=== PATIENT | male | born 2000 | race Caucasian/White ===

== ENCOUNTER 2024-03-24 06:38 | Emergency (ER) | payer SELFPAY ==
[2024-03-24 07:19] LABS: Absolute Basophils 0.1 K/uL (0-0.5); Absolute Eosinophils 0.5 K/uL (0-0.5); Absolute Lymphocytes (CBC) 3.8 K/uL (0.7-4.9); Absolute Monocytes 0.8 K/uL (0.1-1.3); Absolute Neutrophil 3.8 K/uL (1.8-8.0); Basophils % 0.8 % (0-1.3); Eosinophils % 5.8 % (0-4.4); Hematocrit 44.5 % (39.6-49.0); Hemoglobin 15.5 g/dL (13.6-17.9); Lymphocytes % 41.8 % (15.3-44.8); MCH 30.9 pg (27.0-35.0); MCV 88.5 fL (80-100); MPV 8.2 fL (7.6-11.3); Monocytes % 9.1 % (3.3-12.3); Neutrophils % 42.5 % (41.7-73.7); Nucleated Red Blood Cells % 0.2 % (0-0); Platelets 274 thou/uL (152-406); RBC Red Blood Cell Count 5.02 M/uL (4.33-5.43); Red Cell Distribution Width 12.1 % (12.1-15.2)
[2024-03-24 07:21] LABS: Specific Gravity 1.028 (1.005-1.030); Sqamous Epithelial None Seen /HPF (None Seen); Urine Bacteria None Seen /HPF (<20); Urine Bilirubin NEGATIVE (Negative); Urine Blood Negative (Negative); Urine Clarity Clear (Clear); Urine Color Light-Yellow (Yellow); Urine Culture Reflex Order NOT NEEDED; Urine Glucose NEGATIVE (Negative); Urine Ketones NEGATIVE (Negative); Urine Microscopic Reflex YN ORDER UMIC; Urine Mucus Slight /HPF (None Seen); Urine Nitrite NEGATIVE (Negative); Urine Protein NEGATIVE (Negative); Urine RBC None Seen /HPF (None Seen); Urine Urobilinogen Normal (Normal); Urine WBC <5 /HPF (<5); Urine pH 5.5 (5.0-7.0)
[2024-03-24 07:29] LABS: Albumin 4.3 g/dL (3.4-5.0); Albumin/Globulin Ratio 1.5 (1.1-1.8); Bilirubin Total 0.4 mg/dL (0.2-1.0); Globulin 2.9 g/dL (2.3-3.5); Protein, Total 7.2 g/dL (6.4-8.2)
[2024-03-24] MEDS ORDERED: ONDANSETRON 4 MG/2 ML VIAL ONE (07:48)
[2024-03-24] MEDS ORDERED: FAMOTIDINE 20 MG/2 ML VIAL IV ONE (07:49)
[2024-03-24] MEDS ORDERED: KETOROLAC 30 MG/ML INJ ONE (07:49)
[2024-03-24] MEDS ORDERED: NA CHLORIDE 0.9% 1,000 ML ONE (07:49)
[2024-03-24] MEDS ORDERED: MAGNES/ALUMIN/SIMET 30ML UCUP ONE (08:41)
[2024-03-24] MEDS ORDERED: LIDOCAINE VISCOUS 2% 10ML ORAL SOLN ONE (08:41)
--- NOTE | 2024-03-24 09:04 | RAD REPORT ---
EXAM DESCRIPTION: US - Abdomen Exam Limited - 03/24/2024 7:13 am CLINICAL HISTORY: ruq pain COMPARISON: No comparisons TECHNIQUE: Sonographic grayscale and color flow images of the right upper abdominal quadrant were o btained. FINDINGS: The gallbladder demonstrates no gallstones. Minimal layering mildly echogenic sludge. No p ericholecystic fluid or gallbladder wall thickening. The common bile duct is normal measuring 4 mm. The liver demonstrates no findings of intrahepatic biliary dilatation. IMPRESSION: Minimal sludge within the gallbladder. No sonographic findings of acute cholecystitis or gallstones.
--- NOTE | 2024-03-24 10:00 | ER ---
Nurse's Notes [facility] Name: Sandor Sims Age: 23 yrs Sex: Male : 2000 Arrival Date: 03/24/2024 Time: 06:38 Bed 19 Private MD: Diagnosis: Upper abdominal pain, unspecified Presentation: 03/24 06:52 Chief complaint: Patient states: I was woken up out of my sleep this morning at around kd3 0430. The pain has come and gone since then. It is around the upper abdominal area and around the umbilical area. It is not in the lower quadrants. I have never felt a pain like this before. I have no other medical history but i do take Lexapro for depression. Coronavirus screen: Vaccine status: Patient reports being unvaccinated. Ebola Screen: No symptoms or risks identified at this time. Initial Sepsis Screen: Does the patient meet any 2 criteria? No. Patient's initial sepsis screen is negative. Does the patient have a suspected source of infection? No. Patient's initial sepsis screen is negative. Risk Assessment: Do you want to hurt yourself or someone else? Patient reports no desire to harm self or others. Onset of symptoms was March 24, 2024. 06:52 Method Of Arrival: Ambulatory kd3 06:52 Acuity: SHIRIN 3 kd3 Triage Assessment: 06:54 General: Appears uncomfortable, Behavior is calm, cooperative. Pain: Complains of pain kd3 in umbilical area. GI: Abdomen is non-distended. Historical: - Allergies: 06:54 No Known Allergies; kd3 - Home Meds: 06:54 Lexapro Oral [Active]; kd3 - Immunization history:: Adult Immunizations up to date. - Infectious Disease History:: Denies. - Social history:: Smoking status: Reported history of juuling and/or vaping. Screenin:50 [facility] ED Fall Risk Assessment (Adult) History of falling in the last 3 months, jj7 including since admission No falls in past 3 months (0 pts) Confusion or Disorientation No (0 pts) Intoxicated or Sedated No (0 pts) Impaired Gait No (0 pts) Mobility Assist Device Used No (0 pt) Altered Elimination No (0 pt) Score/Fall Risk Level 0 - 2 = Low Risk Oriented to surroundings, Maintained a safe environment, Educated pt \T\ family on fall prevention, incl call for assistance when getting out of bed. Abuse screen: Denies threats or abuse. Nutritional screening: No deficits noted. Tuberculosis screening: No symptoms or risk factors identified. Assessment: 06:50 General: Appears in no apparent distress. comfortable, Behavior is calm, cooperative, jj7 appropriate for age. Pain: Denies pain. GI: Abd is soft and non tender X 4 quads. Abd is soft Reports upper abdominal pain. 10:16 Reassessment: Patient appears in no apparent distress at this time. Patient and/or iw family updated on plan of care and expected duration. Pain level reassessed. Patient is alert, oriented x 3, equal unlabored respirations, skin warm/dry/pink. Patient states feeling better. GI: Bowel sounds present X 4 quads. Vital Signs: 06:52 BP 128 / 86; Pulse 59; Resp 17; Temp 98.1(O); Pulse Ox 100% on R/A; Weight 72.57 kg; kd3 Height 6 ft. 3 in. ; 08:26 BP 133 / 77; Pulse 50; Resp 18; Pulse Ox 99% on R/A; ph 10:16 BP 120 / 76; Pulse 79; Resp 16; Temp 98.1; Pulse Ox 100% on R/A; iw 06:52 Body Mass Index 20.00 (72.57 kg, 190.5 cm) kd3 ED Course: 06:40 Patient arrived in ED. jj6 06:50 Patient has correct armband on for positive identification. Bed in low position. Call jj7 light in reach. Warm blanket given. 06:50 No provider procedures requiring assistance completed. jj7 06:54 Triage completed. kd3 06:54 Arm band placed on. kd3 06:55 Inserted saline lock: 20 gauge in right antecubital area, using aseptic technique. jj7 Blood collected. 06:58 CBC with Diff Sent. jj7 06:58 CMP Sent. jj7 06:58 Lipase Sent. jj7 07:03 Urinalysis w/ reflexes Sent. jj7 07:07 Report given to MAXIMILIANO PETTY. jj7 07:11 Keagan Desai DO is Attending Physician. ms3 07:14 Sagrario Vizcarra, RN is Primary Nurse. ph 07:15 Abdomen Limited US In Process Unspecified. EDMS 09:32 Giovani Martell MD is Referral Physician. ms3 10:00 Giovani Martell MD is Referral Physician. ms3 10:16 IV discontinued, intact, bleeding controlled, No redness/swelling at site. Pressure iw dressing applied. Administered Medications: 08:05 Drug: NS 0.9% IV 1000 ml IV at 1 bolus Per protocol; 1000 mL bolus Route: IV; Rate: 1 ph bolus; Site: right antecubital; 09:45 Follow up: Response: No adverse reaction; IV Status: Completed infusion; IV Intake: ph 1000ml 08:05 Drug: TORadol - Ketorolac IVP 15 mg IVP once Route: IVP; Site: right antecubital; ph 18:30 Follow up: Response: No adverse reaction ph 08:05 Drug: Ondansetron IVP 4 mg IVP once; over 2 minutes Route: IVP; Site: right antecubital;ph 08:30 Follow up: Response: No adverse reaction ph 08:05 Drug: Famotidine IVP 20 mg IVP once; dilute with 10 mL 0.9% NaCl; give over 2 minutes ph Route: IVP; Site: right antecubital; 08:30 Follow up: Response: No adverse reaction ph 10:15 Drug: GI Cocktail with - (Maalox PO 30 ml, Lidocaine Mucous Membrane 2 % 20 iw ml, Phenobarbital-Belladonna PO 10 ml) PO once Route: PO; 10:17 Follow up: Response: No adverse reaction ph Medication: 06:50 VIS not applicable for this client. jj7 Intake: 09:45 IV: 1000ml; Total: 1000ml. ph Outcome: 09:32 Discharge ordered by . ms3 10:00 Discharge ordered by . ms3 10:16 Discharged to home ambulatory, iw 10:16 Condition: good 10:16 Discharge instructions given to patient, Instructed on discharge instructions, follow up and referral plans. medication usage, Demonstrated understanding of instructions, follow-up care, medications, Prescriptions given X 1, 10:17 Patient left the ED. iw Signatures: Dispatcher [employer] EDMS Preethi Moreno RN RN iw Sagrario Vizcarra RN RN ph Keagan Desai DO DO ms3 Mary Kate Romano jj6 Jaimee Franco RN RN kd3 Cyrus Buchanan RN RN jj7 Corrections: (The following items were deleted from the chart) 08:25 08:25 Famotidine IVP 20 mg IVP in right antecubital ph ph
--- NOTE | 2024-03-24 10:01 | EDPHYS ---
Physician Documentation [facility] Name: Sandor Sims Age: 23 yrs Sex: Male : 2000 Arrival Date: 03/24/2024 Time: 06:38 Bed 19 Private MD: ED Physician Keagan Desai HPI: 03/24 07:34 This 23 yrs old Male presents to ER via Ambulatory with complaints of Abdominal Pain. ms3 07:34 23-year-old male with no past medical history presents to the emergency department for ms3 epigastric and right upper quadrant abdominal pain that began at 4:30 AM. He states the pain is rated a 3/10. He endorses nausea and denies vomiting or diarrhea. Patient has not been around sick contacts. He denies any alleviating or inciting factors. Historical: - Allergies: 06:54 No Known Allergies; kd3 - Home Meds: 06:54 Lexapro Oral [Active]; kd3 - Immunization history:: Adult Immunizations up to date. - Infectious Disease History:: Denies. - Social history:: Smoking status: Reported history of juuling and/or vaping. ROS: 07:34 Constitutional: Negative for fever, and chills. Neck: Negative for injury, pain, and ms3 swelling, Cardiovascular: Negative for chest pain, and palpitations. Respiratory: Negative for shortness of breath, cough, wheezing, and pleuritic chest pain, 07:34 MS/Extremity: Negative for injury and deformity, Skin: Negative for injury, rash, and discoloration, 07:34 Abdomen/GI: Positive for abdominal pain, nausea, Exam: 07:34 Constitutional: This is a well developed, well nourished patient who is awake, alert, ms3 and in no acute distress. Head/Face: Normocephalic, atraumatic. Neck: Trachea midline, no cervical lymphadenopathy. Supple, full range of motion without nuchal rigidity, or vertebral point tenderness. No Meningismus. Chest/axilla: Normal chest wall appearance and motion. Nontender with no deformity. Cardiovascular: Regular rate and rhythm with a normal S1 and S2. No gallops, murmurs, or rubs. Normal PMI, no JVD. No pulse deficits. Respiratory: Lungs have equal breath sounds bilaterally, clear to auscultation and percussion. No rales, rhonchi or wheezes noted. No increased work of breathing, no retractions or nasal flaring. Skin: Warm, dry with normal turgor. Normal color with no rashes, no lesions, and no evidence of cellulitis. MS/ Extremity: Pulses equal, no cyanosis. Neurovascular intact. Full, normal range of motion. 07:34 Abdomen/GI: Inspection: abdomen appears normal, Bowel sounds: normal, Palpation: mild abdominal tenderness, in the epigastric area and right upper quadrant, Vital Signs: 06:52 BP 128 / 86; Pulse 59; Resp 17; Temp 98.1(O); Pulse Ox 100% on R/A; Weight 72.57 kg; kd3 Height 6 ft. 3 in. ; 08:26 BP 133 / 77; Pulse 50; Resp 18; Pulse Ox 99% on R/A; ph 10:16 BP 120 / 76; Pulse 79; Resp 16; Temp 98.1; Pulse Ox 100% on R/A; iw 06:52 Body Mass Index 20.00 (72.57 kg, 190.5 cm) kd3 MDM: 06:51 Patient medically screened. ec2 07:34 Differential diagnosis: cholecystitis, Cholelithiasis, gastritis, non-specific abd pain.ms3 09:34 Data reviewed: vital signs, nurses notes, and as a result, I will discharge patient. I ms3 considered the following discharge prescriptions or medication management in the emergency department Medications were administered in the Emergency Department. See MAR. Counseling: I had a detailed discussion with the patient and/or guardian regarding the historical points, exam findings, and any diagnostic results supporting the discharge/admit diagnosis, lab results, radiology results, the need for outpatient follow up, to return to the emergency department if symptoms worsen or persist or if there are any questions or concerns that arise at home. Special discussion: Based on the patient's Hx, exam, and Dx evaluation, there is no indication for emergent surgery or inpatient Tx. It is understood by the patient/guardian that if the Sx's persist or worsen they need to return immediately for re-evaluation. ED course: Discussed labs and imaging with patient. Patient to follow-up with Dr. Martell in 2 to 3 days for reevaluation. Patient understands and agrees with plan. All questions were answered. Return precautions discussed include worsening symptoms, or any other concerns. On reevaluation patient symptoms improved, patient is alert and oriented x 4, in no apparent distress, nontoxic-appearing, ambulatory in the emergency department, speaking full sentences. 03/24 06:51 Order name: CBC with Diff; Complete Time: 07:32 ec2 03/24 06:51 Order name: CMP; Complete Time: 07:32 ec2 03/24 06:51 Order name: Lipase; Complete Time: 07:32 ec2 03/24 06:51 Order name: Urinalysis w/ reflexes; Complete Time: 07:32 ec2 03/24 06:51 Order name: Abdomen Limited US; Complete Time: 09:07 ec2 03/24 06:51 Order name: IV Saline Lock; Complete Time: 06:58 ec2 03/24 06:51 Order name: Labs collected and sent; Complete Time: 06:58 ec2 Administered Medications: 08:05 Drug: NS 0.9% IV 1000 ml IV at 1 bolus Per protocol; 1000 mL bolus Route: IV; Rate: 1 ph bolus; Site: right antecubital; 09:45 Follow up: Response: No adverse reaction; IV Status: Completed infusion; IV Intake: ph 1000ml 08:05 Drug: TORadol - Ketorolac IVP 15 mg IVP once Route: IVP; Site: right antecubital; ph 18:30 Follow up: Response: No adverse reaction ph 08:05 Drug: Ondansetron IVP 4 mg IVP once; over 2 minutes Route: IVP; Site: right antecubital;ph 08:30 Follow up: Response: No adverse reaction ph 08:05 Drug: Famotidine IVP 20 mg IVP once; dilute with 10 mL 0.9% NaCl; give over 2 minutes ph Route: IVP; Site: right antecubital; 08:30 Follow up: Response: No adverse reaction ph 10:15 Drug: GI Cocktail with - (Maalox PO 30 ml, Lidocaine Mucous Membrane 2 % 20 iw ml, Phenobarbital-Belladonna PO 10 ml) PO once Route: PO; 10:17 Follow up: Response: No adverse reaction ph Disposition Summary: 03/24/24 10:00 Discharge Ordered Notes: Location: Home(03/24/24 10:00) ms3 Condition: Stable(03/24/24 10:00) ms3 Diagnosis - Upper abdominal pain, unspecified(03/24/24 10:00) ms3 Followup: ms3 - With: Giovani Martell MD - When: 2 - 3 days - Reason: Recheck today's complaints Discharge Instructions: - Discharge Summary Sheet ms3 - Abdominal Pain, Adult ms3 Forms: - Work release form em1 - Medication Reconciliation Form ms3 - Antibiotic Education ms3 - Prescription Opioid Use ms3 - Patient Portal Instructions ms3 - Leadership Thank You Letter ms3 Prescriptions: - Pepcid 20 mg Oral Tablet - take 1 tablet ORAL route every 12 hours for 5 days; 10 tablet; Refills: 0, ms3 Product Selection Permitted Signatures: Dispatcher [employer] EDPreethi Austin, RN RN iw Sagrario Vizcarra RN RN Keagan Desai, DO ms3 Jaimee Franco RN RN kd3 Ry Vizcarra MD MD ec2 Corrections: (The following items were deleted from the chart) 06:51 06:51 CBC+H.LAB.BRZ ordered. EDMS EDMS 06:51 06:51 COMPREHENSIVE METABOLIC PANEL+C.LAB.BRZ ordered. EDMS EDMS 06:51 06:51 LIPASE+C.LAB.BRZ ordered. EDMS EDMS 06:51 06:51 Urinalysis+U.LAB.BRZ ordered. EDMS EDMS 09:33 09:32 Home ms3 ms3 09:33 09:32 Stable ms3 ms3 09:33 09:32 Upper abdominal pain, unspecified ms3 ms3 09:35 09:34 ED course: Discussed labs and imaging with patient. Patient to follow-up with Dr. gabrielle Martell in 2 to 3 days for reevaluation. Patient understands and agrees with plan. All questions were answered. Return precautions discussed include worsening symptoms, or any other concerns. ms3
[2024-03-24 10:39] VITALS: BP 120/76; TEMP 98.1; O2SAT 100
== END 2024-03-24 10:17 | disposition home or self-care (01) ==
LOC: ER 06:38
DX: R10.13 Epigastric pain (principal)
CPT/HCPCS: 36415; 76705; 80053; 81001; 83690; 85025; 96361; 96374; 96375; 99284; J2405; J7030